=== PATIENT | female | born 1950 | race Caucasian/White ===

== ENCOUNTER 2020-06-13 18:36 | Emergency (ER) | payer SELFPAY ==
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
--- NOTE | 2020-06-14 09:00 | CR ---
Forearm 2V Rt CLINICAL HISTORY: Trauma FINDINGS: There is an old healed fracture of the distal radius and ulnar styloid. Bones appear osteopenic There is no acute fracture within the forearm. There is osteoarthritic change in the wrist IMPRESSION: Old healed fracture distal radius and ulnar styloid Osteopenia Osteoarthritis
== END 2020-06-13 20:04 | disposition home or self-care (01) ==
LOC: JP.ED 18:36
DX: S50.11XA Contusion of right forearm, initial encounter (principal); S50.811A Abrasion of right forearm, initial encounter; S00.81XA Abrasion of other part of head, initial encounter; F10.120 Alcohol abuse with intoxication, uncomplicated; I10 Essential (primary) hypertension; Y90.6 Blood alcohol level of 120-199 mg/100 ml; Z79.899 Other long term (current) drug therapy; W18.30XA Fall on same level, unspecified, initial encounter
CPT/HCPCS: 36415; 73090-26-RT; 73090-RT; 80053; 80307; 81001; 85027; 99283; 99284-25